=== PATIENT | male | born 1955 | race Caucasian/White ===

== ENCOUNTER 2019-01-05 18:43 | Emergency (ER) | payer SELFPAY ==
[~2019-01-05] VITALS: Ht 172.7 cm; Wt 99.8 kg
[2019-01-05 19:03] VITALS: BP 130/58
[2019-01-05] MEDS ORDERED: ALBUTEROL SULF 2.5 MG/0.5ML(0.5%) NEB SOLN NEB ONE (23:15)
[2019-01-05] MEDS ORDERED: methylPREDNISolone SOD SUCC 125 MG/2 ML VL IM ONE (23:15)
[2019-01-05] MEDS ORDERED: IPRATROPIUM BROM 0.5 MG/2.5ML INH SOL NEB ONE (23:15)
== END 2019-01-05 23:45 | disposition home or self-care (01) ==
LOC: ER 18:49
DX: J45.901 Unspecified asthma with (acute) exacerbation (principal)
CPT/HCPCS: 94640; 96372; 99283; J2930; J7611